=== PATIENT | male | born 1980 | race Caucasian/White ===

== ENCOUNTER 2017-01-25 06:23 | Emergency (ER) | payer MEDICAID ==
[~2017-01-25] VITALS: Ht 180.3 cm; Wt 121.5 kg
[~2017-01-25 06:23] MED LIST: IBUP800T25 PO
[2017-01-25 06:33] VITALS: Ht 180.3 cm; Wt 121.5 kg
[2017-01-25] MEDS ORDERED: IBUP400T22 PO (07:01)
[2017-01-25] MEDS ORDERED: TRAM50TA2 PO (07:01)
--- NOTE | 2017-01-25 07:15 | ERD ---
ER Documentation Chief Complaint Date/Time DATE: 01/25/17 TIME: 07:11 Chief Complaint dental pain x 3 days HPI This is a 36-year-old male presents emergency department for dental pain 3 days. Patient states he went to his dentist yesterday and was given prescription for antibiotic and pain medication. Patient believes he was given prescription for amoxicillin but unsure which pain medicine he was given. Patient states he has an appointment in 4 days with the dentist to have a procedure done. Patient states pain is severe and is unable to sleep. No swelling of face. No fevers. Patient states he has increased pain when he closes his mouth and bites down. No sore throat or headache. No earache. No cough, shortness breath or difficulty breathing. ROS All systems reviewed and are negative except as per history of present illness. Medications Home Meds Active Scripts Tramadol HCl (Tramadol HCl) 50 Mg Tablet, 50 MG PO Q4 Y for PAIN, #10 TAB Prov:RICHY MATHEWS NP 01/25/17 Ibuprofen* (Motrin*) 400 Mg Tab, 400 MG PO Q6, #15 TAB Prov:RICHY MATHEWS NP 01/25/17 Ibuprofen* (Motrin*) 800 Mg Tab, 800 MG PO Q6H Y for PAIN AND OR ELEVATED TEMP, #30 TAB Prov:DANNY GEORGE NP 11/17/15 Allergies Allergies: Coded Allergies: No Known Allergy (Unverified , 01/25/17) PMhx/Soc Medical and Surgical Hx: pt denies Medical Hx, pt denies Surgical Hx Hx Alcohol Use: Yes Hx Substance Use: No Hx Tobacco Use: No Smoking Status: Never smoker Physical Exam Vitals Vital Signs Date Time Temp Pulse Resp B/P Pulse Ox O2 Delivery O2 Flow Rate FiO2 01/25/17 06:33 98.0 77 18 157/87 97 Physical Exam Const: Alert, wal-dim-yfgtzsajw Head: Atraumatic Eyes: Normal Conjunctiva ENT: Normal External Ears, Nose and Mouth. mild swelling to right upper 3rd molar. poor dentition. Neck: Full range of motion..~ No meningismus. Resp: Clear to auscultation bilaterally Cardio: Regular rate and rhythm, no murmurs Abd: Soft, non tender, non distended. Normal bowel sounds Skin: No petechiae or rashes Back: No midline or flank tenderness Ext: No cyanosis, or edema Neur: Awake and alert Psych: Normal Mood and Affect Procedures/MDM MDM: This is a 36-year-old male presenting to emergency department with dental pain for the past 3 days. Patient states he was started on amoxicillin yesterday and has been taking that as prescribed. Patient states he has taken "3 Tylenol" without relief of pain. Patient states he has difficulty sleeping at night due to pain. Physical exam reveals swelling to his right third upper molar. Patient has poor dentition. However no severe swelling, drainage or warmth. No swelling of face. Low suspicion for tooth abscess or deep space infection. Patient is appropriate for outpatient management will be given prescription for ibuprofen 400 mg #15 and tramadol 50 mg #10. Instructed patient to follow-up with dentist in the next 2-3 days for reassessment or at scheduled appointment in 4 days. Patient given resources for [facility] dentist. Return to ED for any high fever, chest pain, difficulty breathing, shortness breath, wheezing, vomiting, diarrhea, abdominal pain or any new or worsening symptoms. Patient verbalizes understanding. All questions answered at discharge. Departure Diagnosis: Primary Impression: Pain, dental Condition: Stable Patient Instructions: Dental Pain Referrals: [facility] ([facility] walk in clinic) [facility] () Usted se puentes hecho un examen mdico de control que le indica que no est en artemio condicin que requiera tratamiento urgente en el Departamento de Emergencia. Un estudio ms profundo y el tratamiento de dotson condicin pueden esperar sin ningn riesgo hasta que usted sea atendida/o en el consultorio de dotson mdico o artemio cl juany. Es responsabilidad suya arreglar artemio anita para el seguimiento del alem. MANEJO DE CONDICIONES NO URGENTES EN EL FUTURO 1) Si usted tiene un mdico de atencin primaria: Usted debera llamar a dotson mdico de atencin primaria antes de venir al departamento de emergencia. Despus de las horas de consultorio, dotson doctor o dotson asociado/a est disponible por telfono. El mdico o enfermero de nathanael en el servicio telefnico puede asesorarle por summer medio para atender el problema, o alem contrario se puede programar artemio anita. 2) Si usted no tiene un mdico de atencin primaria: Llame al mdico o clnica de referencia que aparece abajo laura las horas de consultorio para hacer artemio anita para que le vean. CLINICAS: [facility] [phone] [facility] [phone] [facility] [phone] [address] [place] [id number] [phone] [facility] [phone] [address] [facility]. [phone] [address] [facility]. [facility] () Usted se puentes hecho un examen mdico de control que le indica que no est en artemio condicin que requiera tratamiento urgente en el Departamento de Emergencia. Un estudio ms profundo y el tratamiento de dotson condicin pueden esperar sin ningn riesgo hasta que usted sea atendida/o en el consultorio de dotson mdico o artemio cl juany. Es responsabilidad suya arreglar artemio anita para el seguimiento del alem. MANEJO DE CONDICIONES NO URGENTES EN EL FUTURO 1) Si usted tiene un mdico de atencin primaria: Usted debera llamar a dotson mdico de atencin primaria antes de venir al departamento de emergencia. Despus de las horas de consultorio, dotson doctor o dotson asociado/a est disponible por telfono. El mdico o enfermero de nathanael en el servicio telefnico puede asesorarle por summer medio para atender el problema, o alem contrario se puede programar artemio anita. 2) Si usted no tiene un mdico de atencin primaria: Llame al mdico o condado institucions de referencia que aparece abajo laura las horas de consultorio para hacer artemio anita para que le vean. SI USTED NO PUEDE PAGAR PARA ERIN UN MEDICO puede ir a: [facility] [address] [place] [address] [facility] [address] [place] [address] [facility] [address] [place] [address] PARA ERIC [facility] [address] [place], [place] [id number] Additional Instructions: Seguimiento con el dentista bah pronto gian sea posible. Regresar a ED por fiebre mihir, dolor en el pecho, dificultad para respirar, respiracin entrecortada, sibilancias, vmitos, diarrea, dolor abdominal o cualquier sntoma nuevo o que empeora. RICHY MATHEWS NP Jan 25, 2017 07:15
== END 2017-01-25 07:16 | disposition home or self-care (01) ==
LOC: FTE 06:23
DX: K08.89 Other specified disorders of teeth and supporting structures (principal)
CPT/HCPCS: 99282

== ENCOUNTER 2017-05-15 09:13 | Emergency (ER) | payer MEDICAID ==
[~2017-05-15] VITALS: Ht 180.3 cm; Wt 119.7 kg
[~2017-05-15 09:13] MED LIST changes: +IBUP400T22 PO; +TRAM50TA2 PO
[2017-05-15 09:18] VITALS: Ht 180.3 cm; Wt 119.7 kg
[2017-05-15] MEDS ORDERED: ONDANSETRON 4 MG INJ IV STA (10:48)
[2017-05-15] MEDS ORDERED: FAMOTIDINE 20 MG INJ IV ONE (11:00)
[2017-05-15 11:23] LABS: BASOPHIL # 0.1 10^3/ul (0.0-0.1); BASOPHILS % 0.8 % (0.0-2.0); EOSINOPHILS # 0.7 10^3/ul (0.0-0.5); EOSINOPHILS % 8.8 % (0.0-7.0); HEMATOCRIT 47.6 % (42.0-52.0); HEMOGLOBIN 15.7 g/dl (14.0-18.0); LYMPHOCYTES # 3.2 10^3/ul (0.8-2.9); MEAN CORPUSCULAR HEMOGLOBIN 29.2 pg (29.0-33.0); MEAN CORPUSCULAR VOLUME 88.6 fl (82.0-101.0); MEAN PLATELET VOLUME 10.2 fl (7.4-10.4); MONOCYTE # 0.6 10^3/ul (0.3-0.9); MONOCYTES % 7.2 % (0.0-11.0); NEUTROPHIL # 3.7 10^3/ul (1.6-7.5); NEUTROPHILS % 44.8 % (39.0-77.0); PLATELET COUNT 219 10^3/UL (140-415); RED BLOOD COUNT 5.37 10^6/ul (4.70-6.10); RED CELL DISTRIBUTION WIDTH 12.5 % (11.5-14.5); WHITE BLOOD COUNT 8.3 10^3/ul (4.8-10.8)
[2017-05-15 11:37] LABS: ADD UMIC NO; UR ASCORBIC ACID NEGATIVE (NEGATIVE); UR BILIRUBIN (Dip) NEGATIVE (NEGATIVE); UR BLOOD (Dip) NEGATIVE (NEGATIVE); UR CLARITY CLEAR (CLEAR); UR COLOR YELLOW (YELLOW); UR GLUCOSE (Dip) NEGATIVE (NEGATIVE); UR KETONES (Dip) NEGATIVE (NEGATIVE); UR LEUKOCYTE ESTERASE (Dip) NEGATIVE Leu/ul (NEGATIVE); UR NITRITE (Dip) NEGATIVE (NEGATIVE); UR SPECIFIC GRAVITY (Dip) 1.017 (1.003-1.030); UR TOTAL PROTEIN (Dip) NEGATIVE (NEGATIVE); UR UROBILINOGEN (Dip) NEGATIVE (NEGATIVE)
--- NOTE | 2017-05-15 11:37 | RADRPT ---
PROCEDURE: CT Abdomen and pelvis without contrast. CLINICAL INDICATION: Left lower quadrant abdominal pain for 3 weeks TECHNIQUE: CT scan of the abdomen and pelvis without contrast was performed on a multidetector hig h-resolution CT scan. . Coronal and sagittal reformatted images were obtained from the axial cox monett e images. Standard CT scan of the abdomen pelvis without contrast protocols were performed. The total exam CTDI equals 22.91 mGy and the total exam DLP equals 1573.23 mGy-cm. One or more of the following dose reduction techniques were used: - Automated exposure control. - Adjustment of the mA and/or kV according to patient size. Use of iterative reconstruction technique. COMPARISON: None. FINDINGS: There are diverticula involving the sigmoid and descending colon but no CT evidence of diverticuliti s. The remainder of the colon is unremarkable. The stomach, small bowel and appendix are unremarkabl e. The kidneys are normal in size without calcified renal calculi, hydronephrosis or intra renal masses bilaterally. The bladder is contracted but otherwise unremarkable. Prostate unremarkable. Negative for intra-abdominal free air, free fluid, abscesses or lymphadenopathy. Liver spleen pancreas adrenal glands and gallbladder are unremarkable. No evidence biliary ductal di lation. Aorta unremarkable. Abdominal pelvic wall unremarkable. Lung bases unremarkable. The osseous structu res are unremarkable. IMPRESSION: 1. Mild diverticulosis of the descending and sigmoid colon but no CT evidence of diverticulitis. 2. Unremarkable appendix. 3. No calcified urinary calculi or obstructive uropathy. RPTAT:AAJJ Physician Jaycee Date Time Electronically viewed and signed by Physician Jaycee on 05/15/2017 11:37 BM/
[2017-05-15 13:14] LABS: ALBUMIN 4.4 g/dl (3.3-4.9); ALBUMIN/GLOBULIN RATIO 1.33; BILIRUBIN,INDIRECT 0.4 mg/dl (0-1.1); BILIRUBIN,TOTAL 0.4 mg/dl (0.2-1.3); CREATININE 0.75 mg/dl (0.61-1.24); POTASSIUM 4.1 mmol/L (3.5-5.1); TOTAL PROTEIN 7.7 g/dl (6.1-8.1)
[2017-05-15] MEDS ORDERED: KETOROLAC 30 MG INJ IV STA (13:25)
[2017-05-15] MEDS ORDERED: ONDA4TAB14 PO (13:27)
[2017-05-15] MEDS ORDERED: ACET325T33 PO (13:27)
[2017-05-15] MEDS ORDERED: DOCU-144 PO (13:27)
[2017-05-15 13:56] VITALS: BP 118/79; PULSE 75; RESP 16; TEMP 98.1
--- NOTE | 2017-05-15 14:10 | ERD ---
ER Documentation Chief Complaint Chief Complaint Pt with L flank pain and constipation X 3 weeks, worst with spicy foods. HPI 36-year-old male patient with no significant past medical history presents to the ED complaining of left sided back pain and left lower abdominal pain started intermittently 3 weeks ago. Patient reports that the abdominal pain is worse with eating spicy foods. Reports that he started to note some slight blood in his rectum as he was wiping on his toilet paper. Denies any bloody stools, hematuria. States that he feels nauseous but denies any vomiting. Denies any hematemesis, fever, chills. Denies any chest pain, shortness of breath. Denies any scrotal pain, urine or bowel incontinence, saddle anesthesia. Denies any heavy lifting or trauma. Denies any scrotal pain. hat renovator used. ROS All systems reviewed and are negative except as per history of present illness. Medications Home Meds Active Scripts Docusate Sodium* (Colace*) 100 Mg Capsule, 100 MG PO TID, #30 CAP for constipation Prov:DAJA MUELLER PA-C 05/15/17 Acetaminophen* (Tylenol*) 325 Mg Tablet, 2 TAB PO Q8 Y for PAIN AND OR ELEVATED TEMP, #20 TAB Prov:DAJA MUELLER PA-C 05/15/17 Ondansetron (Ondansetron Odt) 4 Mg Tab.rapdis, 4 MG PO Q6H Y for NAUSEA AND/OR VOMITING, #10 TAB Prov:DAJA MUELLER PA-C 05/15/17 Tramadol HCl (Tramadol HCl) 50 Mg Tablet, 50 MG PO Q4 Y for PAIN, #10 TAB Prov:RICHY MATHEWS NP 01/25/17 Ibuprofen* (Motrin*) 400 Mg Tab, 400 MG PO Q6, #15 TAB Prov:RICHY MATHEWS NP 01/25/17 Ibuprofen* (Motrin*) 800 Mg Tab, 800 MG PO Q6H Y for PAIN AND OR ELEVATED TEMP, #30 TAB Prov:DANNY GEORGE NP 11/17/15 Allergies Allergies: Coded Allergies: No Known Allergy (Unverified , 01/25/17) PMhx/Soc Medical and Surgical Hx: pt denies Medical Hx, pt denies Surgical Hx Hx Alcohol Use: Yes Hx Substance Use: No Hx Tobacco Use: No Physical Exam Vitals Vital Signs Date Time Temp Pulse Resp B/P Pulse Ox O2 Delivery O2 Flow Rate FiO2 05/15/17 13:56 98.1 75 16 118/79 98 Room Air 05/15/17 09:18 97.7 77 18 138/89 98 Physical Exam Const: Vgi-cpl-mbjzlvsax, well-nourished. In no acute distress. Head: Atraumatic, normocephalic Eyes: Normal Conjunctiva without injection. No purulent discharge. ENT: Normal external ear, nose. Moist oropharynx without tonsillar exudates. Non -erythematous pharynx. Uvula midline. No drooling. No trismus. Neck: No cervical midline tenderness. Full range of motion. No meningismus. No cervical lymphadenopathy. No JVD. Resp: Clear to auscultation bilaterally. No wheezing, rhonchi, rales, or crackles. No accessory muscle use. No retractions. Cardio: Regular rate and rhythm. No murmurs, rubs or gallops. Abd: Soft, left lower quadrant tenderness, non distended. Normal bowel sounds. No palpable masses. No rebound tenderness. No guarding. Negative McBurney's point. Negative psoas sign. Negative obturator sign. See [facility] for [facility] exam. Skin: No petechiae or rashes Back: No midline tenderness. No CVA tenderness. Ext: No cyanosis, or edema. Neur: Awake and alert. Normal gait. Normal coordination. Psych: Normal Mood and Affect Result Diagram: 05/15/17 1110 05/15/17 1235 Results 24 hrs Laboratory Tests Test 05/15/17 10:48 05/15/17 11:10 05/15/17 12:35 Stool Occult Blood NEGATIVE White Blood Count 8.310^3/ul Red Blood Count 5.3710^6/ul Hemoglobin 15.7g/dl Hematocrit 47.6% Mean Corpuscular Volume 88.6fl Mean Corpuscular Hemoglobin 29.2pg Mean Corpuscular Hemoglobin Concent 33.0g/dl Red Cell Distribution Width 12.5% Platelet Count 89282^3/UL Mean Platelet Volume 10.2fl Neutrophils % 44.8% Lymphocytes % 38.0% Monocytes % 7.2% Eosinophils % 8.8% Basophils % 0.8% Nucleated Red Blood Cells % 0.0/100WBC Neutrophils # 3.710^3/ul Lymphocytes # 3.210^3/ul Monocytes # 0.610^3/ul Eosinophils # 0.710^3/ul Basophils # 0.110^3/ul Nucleated Red Blood Cells # 0.010^3/ul Urine Color YELLOW Urine Clarity CLEAR Urine pH 5.0 Urine Specific [place] 1.017 Urine Ketones NEGATIVEmg/dL Urine Nitrite NEGATIVEmg/dL Urine Bilirubin NEGATIVEmg/dL Urine Urobilinogen NEGATIVEmg/dL Urine Leukocyte Esterase NEGATIVELeu/ul Urine Hemoglobin NEGATIVEmg/dL Urine Glucose NEGATIVEmg/dL Urine Total Protein NEGATIVEmg/dl Sodium Level 141mmol/L Potassium Level 4.1mmol/L Chloride Level 105mmol/L Carbon Dioxide Level 26mmol/L Anion Gap 14 Blood Urea Nitrogen 10mg/dl Creatinine 0.75mg/dl Glucose Level 92mg/dl Calcium Level 9.0mg/dl Total Bilirubin 0.4mg/dl Direct Bilirubin 0.00mg/dl Indirect Bilirubin 0.4mg/dl Aspartate Amino Transf (AST/SGOT) 24IU/L Alanine Aminotransferase (ALT/SGPT) 65IU/L Alkaline Phosphatase 58IU/L Total Protein 7.7g/dl Albumin 4.4g/dl Globulin 3.30g/dl Albumin/Globulin Ratio 1.33 Lipase 42U/L Current Medications Medications (Trade) Dose Ordered Sig/Dav Route PRN Reason Start Time Stop Time Status Last Admin Dose Admin Ondansetron HCl (Zofran Inj) 4 mg ONCE STAT IV 05/15/17 10:48 05/15/17 10:50 DC 05/15/17 11:33 Famotidine (Pepcid Iv) 20 mg ONCE ONCE IV 05/15/17 11:00 05/15/17 11:01 DC 05/15/17 11:33 Ketorolac Tromethamine (Toradol) 30 mg ONCE STAT IV 05/15/17 13:25 05/15/17 13:26 DC 05/15/17 13:44 Procedures/MDM 36-year-old male patient with no significant past medical history presents to the ED complaining of left flank pain and left lower quadrant abdominal pain started intermittently for the past 3 weeks. Patient is afebrile and nontoxic- appearing. Patient has normal vital signs. Patient was further worked up with CBC, CMP, lipase, UA, CT of the abdomen and pelvis without contrast. Rectal exam was performed here in the ED with patient's consent. Sewing Machine Attachment Tester present. No gross blood noted. Occult stool test was ordered to further evaluate patient. No fluctuance. No hemorrhoids, fissures, fistulas, perianal abscesses present. Patient's pain and symptoms have improved after treatment with 30 mg IV Toradol, 4 mg IV Zofran, 20 mg IV famotidine. CBC: No leukocytosis. No e/o of systemic infection. No e/o anemia. CMP: No e/o severe acidosis, alkalosis, renal failure, diabetic ketoacidosis, liver disease Lipase within normal limits. Urine: No leukocyte esterase, no nitrites, no hematuria. PROCEDURE: CT Abdomen and pelvis without contrast. CLINICAL INDICATION: Left lower quadrant abdominal pain for 3 weeks TECHNIQUE: CT scan of the abdomen and pelvis without contrast was performed on a multidetector high-resolution CT scan. . Coronal and sagittal reformatted images were obtained from the axial source images. Standard CT scan of the abdomen pelvis without contrast protocols were performed. The total exam CTDI equals 22.91 mGy and the total exam DLP equals 1573.23 mGy- cm. One or more of the following dose reduction techniques were used: - Automated exposure control. - Adjustment of the mA and/or kV according to patient size. Use of iterative reconstruction technique. COMPARISON: None. FINDINGS: There are diverticula involving the sigmoid and descending colon but no CT evidence of diverticulitis. The remainder of the colon is unremarkable. The stomach, small bowel and appendix are unremarkable. The kidneys are normal in size without calcified renal calculi, hydronephrosis or intra renal masses bilaterally. The bladder is contracted but otherwise unremarkable. Prostate unremarkable. Negative for intra-abdominal free air, free fluid, abscesses or lymphadenopathy. Liver spleen pancreas adrenal glands and gallbladder are unremarkable. No evidence biliary ductal dilation. Aorta unremarkable. Abdominal pelvic wall unremarkable. Lung bases unremarkable. The osseous structures are unremarkable. IMPRESSION: 1. Mild diverticulosis of the descending and sigmoid colon but no CT evidence of diverticulitis. 2. Unremarkable appendix. 3. No calcified urinary calculi or obstructive uropathy. Patient has diverticulosis with no evidence of diverticulitis. Low suspicion for testicular torsion, gastritis, GERD, peptic ulcer disease, cholecystitis, choledocholithiasis, cholangitis, pancreatitis, appendicitis, bowel obstruction , ileus, volvulus, nephrolithiasis, pyelonephritis, hepatitis, perforated viscus , diverticulitis, abdominal hernia, acute abdomen, mesenteric ischemia or other emergent conditions. Discharge medications: Colace, Tylenol, Zofran Follow up with primary care physician in 1-2 days for referral to senior telecommunications consultant. Instructed patient to return to the ED sooner for any worsening symptoms. Patient's questions were answered. Patient understood and agreed with discharge plan. Patient discharged stable. Departure Diagnosis: Primary Impression: Abdominal pain Abdominal location: left lower quadrant Qualified Code: R10.32 - Left lower quadrant pain Additional Impression: Back pain Back pain location: low back pain Chronicity: acute Back pain laterality: left Sciatica presence: without sciatica Qualified Code: M54.5 - Acute left- sided low back pain without sciatica Condition: Stable Patient Instructions: Understanding Diverticulosis and Diverticulitis Referrals: [facility] YOU HAVE RECEIVED A MEDICAL SCREENING EXAM AND THE RESULTS INDICATE THAT YOU DO NOT HAVE A CONDITION THAT REQUIRES URGENT TREATMENT IN THE EMERGENCY DEPARTMENT. FURTHER EVALUATION AND TREATMENT OF YOUR CONDITION CAN WAIT UNTIL YOU ARE SEEN IN YOUR DOCTORS OFFICE WITHIN THE NEXT 1-2 DAYS. IT IS YOUR RESPONSIBILITY TO MAKE AN APPOINTMENT FOR FOLOW-UP CARE. IF YOU HAVE A PRIMARY DOCTOR --you should call your primary doctor and schedule an appointment IF YOU DO NOT HAVE A PRIMARY DOCTOR YOU CAN CALL OUR PHYSICIAN REFERRAL HOTLINE AT IF YOU CAN NOT AFFORD TO SEE A PHYSICIAN YOU CAN CHOSE FROM THE FOLLOWING [facility] [address] [facility] [address] [facility] [address] [facility] [address] [facility]. [facility] [address] [facility] [facility] [address] [facility]. [facility]. [address] [facility] [facility] YOU HAVE RECEIVED A MEDICAL SCREENING EXAM AND THE RESULTS INDICATE THAT YOU DO NOT HAVE A CONDITION THAT REQUIRES URGENT TREATMENT IN THE EMERGENCY DEPARTMENT. FURTHER EVALUATION AND TREATMENT OF YOUR CONDITION CAN WAIT UNTIL YOU ARE SEEN IN YOUR DOCTORS OFFICE WITHIN THE NEXT 1-2 DAYS. IT IS YOUR RESPONSIBILITY TO MAKE AN APPOINTMENT FOR FOLOW-UP CARE. IF YOU HAVE A PRIMARY DOCTOR --you should call your primary doctor and schedule and appointment IF YOU DO NOT HAVE A PRIMARY DOCTOR YOU CAN CALL OUR PHYSICIAN REFERRAL HOTLINE AT . IF YOU CAN NOT AFFORD TO SEE A PHYSICIAN YOU CAN CHOSE FROM THE FOLLOWING [facility] INSTITUTIONS: [facility] [address] [place] [address] [facility] [address] [place], [place] [id number] [place] [address] [address] [place] [address] [facility]/SPECIALTIES Additional Instructions: Llame al doctor MAANA y kristi artemio MARLO PARA DENTRO DE 2-3 ESTRADA.Dgale a la secretaria que nosotros le instruimos hacer esta marlo.Avise o llame si dotson condicin se empeora antes de la marlo. Regresa aqui si peor o no mejor. DAJA MUELLER PA-C May 15, 2017 14:09
== END 2017-05-15 13:50 | disposition home or self-care (01) ==
LOC: FTE 09:13
DX: R10.32 Left lower quadrant pain (principal); M54.5 Low back pain
CPT/HCPCS: 36415; 74176; 80053; 81003; 82270; 83690; 85025; 96374; 96375; J1885; J2405; Z7502; Z7610